=== PATIENT | male | born 1950 | race African-American/Black ===

== ENCOUNTER 2017-07-30 12:19 | Inpatient (IN) | payer OTHER ==
[2017-07-30 12:54] VITALS: BMI 26.3
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
[2017-07-30] MEDS ORDERED: ALBUTEROL SO4 18 GM HFA INHALER IH PRN (15:44)
[2017-07-30] MEDS ORDERED: PATIENT'S OWN MEDICATION (NON-FORMULARY) (Nifedipine [Nifedipine Er] 60 MG) PO SCH (15:45)
[2017-07-30] MEDS ORDERED: MENTHOL/PHENOL 1 EACH UD MM PRN (15:55)
[2017-07-30] MEDS ORDERED: NICOTINE POLACRILEX 2 MG GUM BUC PRN (15:55)
[2017-07-30] MEDS ORDERED: IBUPROFEN 400 MG TABLET (FP) PO PRN (15:55)
[2017-07-30] MEDS ORDERED: guaiFENesin/D-METHORPHAN HB 10 ML UNIT-DOSE CUPS PO PRN (15:55)
[2017-07-30] MEDS ORDERED: MAG HYDROX/AL HYDROX/SIMETH 30 ML UNIT-DOSE CUP PO PRN (15:55)
[2017-07-30] MEDS ORDERED: ACETAMINOPHEN 325 MG TABLET (FP) PO PRN (15:55)
[2017-07-30] MEDS ORDERED: hydrOXYzine PAMOATE 25 MG CAPSULE (FP) PO PRN ×2 (15:55→18:51)
[2017-07-30] MEDS ORDERED: MAGNESIUM HYDROX 2400MG/30ML ORAL SUSPENSION 30 ML CUP PO PRN (15:55)
[2017-07-30] MEDS ORDERED: P-EPHED 60MG/TRIPROLIDI 2.5MG TABLET PO PRN (15:55)
[2017-07-30] MEDS ORDERED: LOPERAMIDE HCL 2 MG CAPSULE PO PRN (15:55)
[2017-07-30] MEDS ORDERED: MAGNESIUM CITRATE 300 ML BOTTLE PO PRN (15:55)
[2017-07-30] MEDS ORDERED: chlordiazePOXIDE HCL 25 MG CAPSULE PO PRN (15:55)
[2017-07-30] MEDS ORDERED: chlordiazePOXIDE HCL 25 MG CAPSULE PO ONE (16:45)
[2017-07-30] MEDS: PANTOPRAZOLE 40 MG TABLET (FP) PO SCH (17:50)
[2017-07-30] MEDS: HYDROCHLOROTHIAZIDE 25 MG TABLET (FP) PO SCH (17:50)
[2017-07-30] MEDS: chlordiazePOXIDE HCL 25 MG CAPSULE PO SCH ×2 (17:51→22:27)
[2017-07-30] MEDS: NICOTINE 14 MG/24 HOURS TOPICAL PATCH TD SCH (17:51)
--- NOTE | 2017-07-30 19:03 | PN ---
[facility] Progress Note Note: received pharmacist reports that patient does not have his own medication, chart reviewed, provider requests continue home med discontinue NF, begins pharmacy supply continue detox
[2017-07-30] MEDS ORDERED: diphenhydrAMINE HCL 50 MG CAPSULE PO PRN (22:00)
[2017-07-30] MEDS: THIAMINE HCL 100 MG TABLET (FP) PO SCH (22:27)
[2017-07-30] MEDS: BUDESONIDE/FORMETEROL FUMARATE 80/4.5 mcg INHALER IH SCH (22:28)
[2017-07-30] MEDS: BACITRACIN 0.9 GM PACKET TP SCH (22:29)
[2017-07-30] MEDS ORDERED: BACITRACIN 0.9 GM PACKET ONE (22:29)
[2017-07-30 23:26] LABS: URINE APPEARANCE SLCLOUDY; URINE BILIRUBIN NEGATIVE (NEGATIVE); URINE BLOOD 2+ (NEGATIVE); URINE COLOR YELLOW; URINE GLUCOSE (UA) NEGATIVE (NEGATIVE); URINE KETONE NEGATIVE (NEGATIVE); URINE LEUK ESTERASE TRACE (NEGATIVE); URINE NITRITE NEGATIVE (NEGATIVE); URINE UROBILINOGEN NEGATIVE mg/dL (0.2-1.0)
[2017-07-30 23:30] LABS: URINE PROTEIN 3+ (NEGATIVE)
[2017-07-30 23:54] LABS: URINE BACTERIA RARE /hpf (NONE SEEN); URINE HYALINE CAST 3 /lpf; URINE MUCUS RARE; URINE RBC 17 /hpf (0-3); URINE WBC 8 /hpf (3-5)
[2017-07-31] MEDS: chlordiazePOXIDE HCL 25 MG CAPSULE PO SCH ×4 (05:12→22:39)
[2017-07-31 10:13] LABS: MCH 26.7 pg (25.7-33.7); MCHC 32.3 g/dl (32.0-35.9); MEAN CELL VOLUME 82.6 fl (80-96); MEAN PLT VOLUME 9.1 fl (7.5-11.1); PLATELET COUNT 211 K/MM3 (134-434); RDW 15.5 % (11.9-15.9); WHITE BLOOD COUNT 6.9 K/mm3 (4.0-10.0)
[2017-07-31 10:27] LABS: ALBUMIN 3.5 g/dl (3.4-5.0); ANION GAP 12 (8-16); CALCIUM 8.5 mg/dL (8.5-10.1); CO2 22 mmol/L (21-32); GLUCOSE,RANDOM 112 mg/dL (74-106)
[2017-07-31 10:33] LABS: ALK PHOS 87 U/L (45-117); BILIRUBIN,TOTAL 0.7 mg/dL (0.2-1.0); CREATININE 1.3 mg/dL (0.7-1.3); SGOT/AST 137 U/L (15-37); SGPT/ALT 116 U/L (12-78); TOT PROT 6.9 g/dl (6.4-8.2)
[2017-07-31] MEDS: BACITRACIN 0.9 GM PACKET TP SCH ×2 (10:36→23:29)
[2017-07-31] MEDS: PRENATAL VITAMINS W/ FOLIC ACID TABLET (FP) PO SCH (10:36)
[2017-07-31] MEDS: HYDROCHLOROTHIAZIDE 25 MG TABLET (FP) PO SCH (10:36)
[2017-07-31] MEDS: PANTOPRAZOLE 40 MG TABLET (FP) PO SCH (10:36)
[2017-07-31] MEDS: NIFEdipine E.R 60 MG TABLET (UD) PO SCH (10:36)
[2017-07-31] MEDS: BUDESONIDE/FORMETEROL FUMARATE 80/4.5 mcg INHALER IH SCH ×2 (10:37→22:39)
[2017-07-31] MEDS: NICOTINE 14 MG/24 HOURS TOPICAL PATCH TD SCH (10:37)
[2017-07-31 12:17] LABS: HIV 1 & 2 AB NEGATIVE; HIV 1 AGp24 NEGATIVE
--- NOTE | 2017-07-31 13:07 | EKG ---
Test Reason : Blood Pressure : / mmHG Vent. Rate : 098 BPM Atrial Rate : 098 BPM P-R Int : 154 ms QRS Dur : 082 ms QT Int : 370 ms P-R-T Axes : 077 019 054 degrees QTc Int : 472 ms NORMAL SINUS RHYTHM MINIMAL VOLTAGE CRITERIA FOR LVH, MAY BE NORMAL VARIANT NO PREVIOUS ECGS AVAILABLE Confirmed by EDGAR GARVIN MD ([id number]) on 07/31/2017 1:07:02 PM Referred By: Confirmed By:EDGAR GARVIN MD
[2017-07-31] MEDS ORDERED: FERROUS SO4 325 MG TABLET (FP) PO SCH (16:15)
--- NOTE | 2017-07-31 16:15 | PN ---
[facility] CIWA - CIWA Score Nausea/Vomitin Muscle Tremors: None Anxiety: 4-Mod. Anxious/Guarded Agitation: 1-Slight > Activity Paroxysmal Sweats: 3 Orientation: 0-Oriented Tacttile Disturbances: 0-None Auditory Disturbances: 2-Mild Harshness/Frighten Visual Disturbances: 3-Moderate Sensitivity Headache: 0-None Present CIWA-Ar Total Score: 15 S Progress Note (SOAP) Subjective: Diarrhea, Body Aches, Fatigue. Objective: PT. A & O X 3, OBSERVED AMBULATING ON UNIT. NO ACUTE DISTRESS. PT. DENIES CHEST PAIN. 07/31/17 16:10 Vital Signs Temperature 98.6 F 07/31/17 15:19 Pulse Rate 105 H 07/31/17 15:19 Respiratory Rate 20 07/31/17 15:19 Blood Pressure 165/78 07/31/17 15:19 O2 Sat by Pulse Oximetry (%) Laboratory Tests 07/30/17 07/31/17 07/31/17 22:25 08:00 08:00 WBC 6.9 D RBC 4.08 Hgb 10.9 L Hct 33.7 L MCV 82.6 MCH 26.7 MCHC 32.3 RDW 15.5 Plt Count 211 MPV 9.1 Sodium Potassium Chloride Carbon Dioxide Anion Gap BUN Creatinine Creat Clearance w eGFR Random Glucose Calcium Total Bilirubin AST ALT Alkaline Phosphatase Total Protein Albumin Urine Color Yellow Urine Appearance Slcloudy Urine pH 5.0 Ur Specific [place] 1.020 Urine Protein 3+ H Urine Glucose (UA) Negative Urine Ketones Negative Urine Blood 2+ H Urine Nitrite Negative Urine Bilirubin Negative Urine Urobilinogen Negative Urine RBC 17 Urine WBC 8 Ur Epithelial Cells Rare Urine Bacteria Rare Hyaline Casts 3 Urine Mucus Rare RPR Titer HIV 1&2 Antibody Screen Negative HIV P24 Antigen Negative 07/31/17 07/31/17 08:00 08:00 WBC RBC Hgb Hct MCV MCH MCHC RDW Plt Count MPV Sodium 140 Potassium 3.5 Chloride 106 Carbon Dioxide 22 Anion Gap 12 BUN 31 H D Creatinine 1.3 D Creat Clearance w eGFR 54.73 Random Glucose 112 H D Calcium 8.5 Total Bilirubin 0.7 D AST 137 H D ALT 116 H D Alkaline Phosphatase 87 Total Protein 6.9 Albumin 3.5 Urine Color Urine Appearance Urine pH Ur Specific [place] Urine Protein Urine Glucose (UA) Urine Ketones Urine Blood Urine Nitrite Urine Bilirubin Urine Urobilinogen Urine RBC Urine WBC Ur Epithelial Cells Urine Bacteria Hyaline Casts Urine Mucus RPR Titer Nonreactive HIV 1&2 Antibody Screen HIV P24 Antigen LABS NOTED. Assessment: 07/31/17 16:12 WITHDRAWAL SYMPTOMS. ANEMIA. 07/31/17 16:17 Plan: CONTINUE DETOX. REPEAT UA AND CMP (08/02/2017) FOR ADMISSION ABNORMALITIES. FEOSOL, 325 MG PO BIDWM. D/C MAGNESIUM-CONTAINING MEDS. INCREASE DAILY PO FLUID INTAKE.
[2017-07-31] MEDS: FERROUS SO4 325 MG TABLET (FP) PO SCH (16:57)
[2017-07-31] MEDS: VITAMINS A AND D TOPICAL OINTMENT 60 GM TUBE TP SCH ×2 (18:16→23:32)
[2017-07-31] MEDS: THIAMINE HCL 100 MG TABLET (FP) PO SCH (22:38)
[2017-08-01] MEDS: chlordiazePOXIDE HCL 25 MG CAPSULE PO SCH ×2 (05:31→10:29)
[2017-08-01] MEDS: VITAMINS A AND D TOPICAL OINTMENT 60 GM TUBE TP SCH ×3 (05:32→17:05)
[2017-08-01] MEDS: FERROUS SO4 325 MG TABLET (FP) PO SCH ×2 (07:31→17:05)
[2017-08-01] MEDS: PANTOPRAZOLE 40 MG TABLET (FP) PO SCH (10:29)
[2017-08-01] MEDS: BACITRACIN 0.9 GM PACKET TP SCH ×2 (10:29→22:18)
[2017-08-01] MEDS: BUDESONIDE/FORMETEROL FUMARATE 80/4.5 mcg INHALER IH SCH ×2 (10:29→22:18)
[2017-08-01] MEDS: HYDROCHLOROTHIAZIDE 25 MG TABLET (FP) PO SCH (10:30)
[2017-08-01] MEDS: NIFEdipine E.R 60 MG TABLET (UD) PO SCH (10:30)
[2017-08-01] MEDS: PRENATAL VITAMINS W/ FOLIC ACID TABLET (FP) PO SCH (10:30)
[2017-08-01] MEDS: NICOTINE 14 MG/24 HOURS TOPICAL PATCH TD SCH (10:30)
[2017-08-01 13:24] LABS: URINE APPEARANCE SLCLOUDY; URINE BILIRUBIN NEGATIVE (NEGATIVE); URINE BLOOD NEGATIVE (NEGATIVE); URINE COLOR YELLOW; URINE GLUCOSE (UA) NEGATIVE (NEGATIVE); URINE KETONE NEGATIVE (NEGATIVE); URINE LEUK ESTERASE NEGATIVE (NEGATIVE); URINE NITRITE NEGATIVE (NEGATIVE); URINE PROTEIN 1+ (NEGATIVE); URINE UROBILINOGEN NEGATIVE mg/dL (0.2-1.0)
[2017-08-01 13:25] LABS: URINE MUCUS RARE; URINE RBC 2 /hpf (0-3); URINE WBC 1 /hpf (3-5)
--- NOTE | 2017-08-01 16:04 | PN ---
[facility] CIWA - CIWA Score Nausea/Vomitin Muscle Tremors: 3 Anxiety: 3 Agitation: 3 Paroxysmal Sweats: 3 Orientation: 0-Oriented Tacttile Disturbances: 1-Very Mild Itch/Numbness Auditory Disturbances: 0-None Visual Disturbances: 0-None Headache: 1-Very Mild CIWA-Ar Total Score: 17 [facility] Progress Note (SOAP) Subjective: Anxious, sweating, nausea, tremor, chills Objective: 08/01/17 16:00 Last Vital Signs Temp Pulse Resp BP Pulse Ox 96.8 F L 94 H 18 149/57 08/01/17 14:52 08/01/17 14:52 08/01/17 14:52 08/01/17 14:52 Laboratory Tests 07/30/17 07/31/17 07/31/17 22:25 08:00 08:00 WBC 6.9 D RBC 4.08 Hgb 10.9 L Hct 33.7 L MCV 82.6 MCH 26.7 MCHC 32.3 RDW 15.5 Plt Count 211 MPV 9.1 Sodium Potassium Chloride Carbon Dioxide Anion Gap BUN Creatinine Creat Clearance w eGFR Random Glucose Calcium Total Bilirubin AST ALT Alkaline Phosphatase Total Protein Albumin Urine Color Yellow Urine Appearance Slcloudy Urine pH 5.0 Ur Specific [place] 1.020 Urine Protein 3+ H Urine Glucose (UA) Negative Urine Ketones Negative Urine Blood 2+ H Urine Nitrite Negative Urine Bilirubin Negative Urine Urobilinogen Negative Urine RBC 17 Urine WBC 8 Ur Epithelial Cells Rare Urine Bacteria Rare Hyaline Casts 3 Urine Mucus Rare RPR Titer HIV 1&2 Antibody Screen Negative HIV P24 Antigen Negative 07/31/17 07/31/17 08/01/17 08:00 08:00 Unknown WBC RBC Hgb Hct MCV MCH MCHC RDW Plt Count MPV Sodium 140 Potassium 3.5 Chloride 106 Carbon Dioxide 22 Anion Gap 12 BUN 31 H D Creatinine 1.3 D Creat Clearance w eGFR 54.73 Random Glucose 112 H D Calcium 8.5 Total Bilirubin 0.7 D AST 137 H D ALT 116 H D Alkaline Phosphatase 87 Total Protein 6.9 Albumin 3.5 Urine Color Yellow Urine Appearance Slcloudy Urine pH 5.0 Ur Specific [place] Urine Protein 1+ H D Urine Glucose (UA) Negative Urine Ketones Negative Urine Blood Negative Urine Nitrite Negative Urine Bilirubin Negative Urine Urobilinogen Negative Urine RBC 2 Urine WBC 1 Ur Epithelial Cells Rare Urine Bacteria Hyaline Casts Urine Mucus Rare RPR Titer Nonreactive HIV 1&2 Antibody Screen HIV P24 Antigen Labs noted: bun 31, serum creatinine 1.3, GFR 54.73; UA: abnormal Assessment: 08/01/17 16:04 Withdrawal symptoms Noted with OLEG vs prerenal azotemia; noted with abnormal UA Plan: Continue detox OLEG vs prerenal azotemia: encouraged to drink lots of water, repeat BMP Abnormal UA: repeat UA
[2017-08-01] MEDS: chlordiazePOXIDE 5 MG CAPSULE PO SCH ×2 (17:05→22:18)
[2017-08-01] MEDS: THIAMINE HCL 100 MG TABLET (FP) PO SCH (22:18)
[2017-08-01] MEDS: diphenhydrAMINE HCL 50 MG CAPSULE PO PRN (22:19)
[2017-08-02] MEDS: VITAMINS A AND D TOPICAL OINTMENT 60 GM TUBE TP SCH ×5 (00:38→23:35)
[2017-08-02] MEDS: chlordiazePOXIDE 5 MG CAPSULE PO SCH ×2 (05:37→10:24)
[2017-08-02] MEDS: FERROUS SO4 325 MG TABLET (FP) PO SCH ×2 (07:35→17:56)
[2017-08-02] MEDS: NIFEdipine E.R 60 MG TABLET (UD) PO SCH (10:24)
[2017-08-02] MEDS: BUDESONIDE/FORMETEROL FUMARATE 80/4.5 mcg INHALER IH SCH ×2 (10:24→23:35)
[2017-08-02] MEDS: BACITRACIN 0.9 GM PACKET TP SCH ×2 (10:24→22:30)
[2017-08-02] MEDS: PRENATAL VITAMINS W/ FOLIC ACID TABLET (FP) PO SCH (10:24)
[2017-08-02] MEDS: PANTOPRAZOLE 40 MG TABLET (FP) PO SCH (10:24)
[2017-08-02] MEDS: HYDROCHLOROTHIAZIDE 25 MG TABLET (FP) PO SCH (10:24)
[2017-08-02] MEDS: NICOTINE 14 MG/24 HOURS TOPICAL PATCH TD SCH (10:24)
[2017-08-02 10:36] LABS: ALBUMIN 2.9 g/dl (3.4-5.0); ALK PHOS 78 U/L (45-117); ANION GAP 7 (8-16); BILIRUBIN,TOTAL 0.4 mg/dL (0.2-1.0); CALCIUM 9.2 mg/dL (8.5-10.1); CO2 26 mmol/L (21-32); CREATININE 1.6 mg/dL (0.7-1.3); GLUCOSE,RANDOM 148 mg/dL (74-106); SGOT/AST 82 U/L (15-37); SGPT/ALT 96 U/L (12-78); TOT PROT 6.1 g/dl (6.4-8.2)
--- NOTE | 2017-08-02 11:09 | PN ---
[facility] Progress Note (SOAP) Subjective: nausea, sweats, interrupted sleep, anxeity, tremors Objective: 08/02/17 11:07 Vital Signs - 8 hr 08/02/17 08/02/17 08/02/17 03:30 06:22 09:03 Temperature 98.1 F 96.4 F L Pulse Rate 86 87 Respiratory 20 18 18 Rate Blood Pressure 127/73 145/60 Laboratory Tests 07/30/17 07/31/17 07/31/17 22:25 08:00 08:00 WBC 6.9 D RBC 4.08 Hgb 10.9 L Hct 33.7 L MCV 82.6 MCH 26.7 MCHC 32.3 RDW 15.5 Plt Count 211 MPV 9.1 Sodium Potassium Chloride Carbon Dioxide Anion Gap BUN Creatinine Creat Clearance w eGFR Random Glucose Calcium Total Bilirubin AST ALT Alkaline Phosphatase Total Protein Albumin Urine Color Yellow Urine Appearance Slcloudy Urine pH 5.0 Ur Specific [place] 1.020 Urine Protein 3+ H Urine Glucose (UA) Negative Urine Ketones Negative Urine Blood 2+ H Urine Nitrite Negative Urine Bilirubin Negative Urine Urobilinogen Negative Urine RBC 17 Urine WBC 8 Ur Epithelial Cells Rare Urine Bacteria Rare Hyaline Casts 3 Urine Mucus Rare RPR Titer HIV 1&2 Antibody Screen Negative HIV P24 Antigen Negative 07/31/17 07/31/17 08/01/17 08:00 08:00 Unknown WBC RBC Hgb Hct MCV MCH MCHC RDW Plt Count MPV Sodium 140 Potassium 3.5 Chloride 106 Carbon Dioxide 22 Anion Gap 12 BUN 31 H D Creatinine 1.3 D Creat Clearance w eGFR 54.73 Random Glucose 112 H D Calcium 8.5 Total Bilirubin 0.7 D AST 137 H D ALT 116 H D Alkaline Phosphatase 87 Total Protein 6.9 Albumin 3.5 Urine Color Yellow Urine Appearance Slcloudy Urine pH 5.0 Ur Specific [place] 1.020 Urine Protein 1+ H D Urine Glucose (UA) Negative Urine Ketones Negative Urine Blood Negative Urine Nitrite Negative Urine Bilirubin Negative Urine Urobilinogen Negative Urine RBC 2 Urine WBC 1 Ur Epithelial Cells Rare Urine Bacteria Hyaline Casts Urine Mucus Rare RPR Titer Nonreactive HIV 1&2 Antibody Screen HIV P24 Antigen 08/02/17 07:30 WBC RBC Hgb Hct MCV MCH MCHC RDW Plt Count MPV Sodium 141 Potassium 4.1 Chloride 108 H Carbon Dioxide 26 Anion Gap 7 L BUN 34 H Creatinine 1.6 H D Creat Clearance w eGFR 43.07 Random Glucose 148 H D Calcium 9.2 Total Bilirubin 0.4 D AST 82 H D ALT 96 H Alkaline Phosphatase 78 Total Protein 6.1 L Albumin 2.9 L Urine Color Urine Appearance Urine pH Ur Specific [place] Urine Protein Urine Glucose (UA) Urine Ketones Urine Blood Urine Nitrite Urine Bilirubin Urine Urobilinogen Urine RBC Urine WBC Ur Epithelial Cells Urine Bacteria Hyaline Casts Urine Mucus RPR Titer HIV 1&2 Antibody Screen HIV P24 Antigen elevated lfts trending down, anemia, dehydration noted, OLEG Assessment: 08/02/17 11:09 withdrawawl sx, hepatitis, dehydration Plan: cont detox, fluids, encoruageg ambulation, symptomatic relief of withdrawla sx as need prn medications ordered, start iron supplements with colace
[2017-08-02 13:42] LABS: URINE APPEARANCE CLEAR; URINE BILIRUBIN NEGATIVE (NEGATIVE); URINE BLOOD 1+ (NEGATIVE); URINE COLOR YELLOW; URINE GLUCOSE (UA) NEGATIVE (NEGATIVE); URINE KETONE NEGATIVE (NEGATIVE); URINE LEUK ESTERASE NEGATIVE (NEGATIVE); URINE NITRITE NEGATIVE (NEGATIVE); URINE PROTEIN NEGATIVE (NEGATIVE); URINE UROBILINOGEN NEGATIVE mg/dL (0.2-1.0)
[2017-08-02 13:53] LABS: URINE BACTERIA RARE /hpf (NONE SEEN); URINE MUCUS RARE; URINE RBC 1 /hpf (0-3); URINE WBC 1 /hpf (3-5)
[2017-08-02] MEDS: chlordiazePOXIDE HCL 10 MG CAPSULE PO SCH ×2 (17:56→22:31)
[2017-08-02] MEDS ORDERED: DOCUSATE SODIUM 100 MG CAPSULE (FP) PO SCH (22:00)
[2017-08-02] MEDS: THIAMINE HCL 100 MG TABLET (FP) PO SCH (22:30)
[2017-08-02] MEDS: diphenhydrAMINE HCL 50 MG CAPSULE PO PRN (22:31)
[2017-08-03] MEDS: chlordiazePOXIDE HCL 10 MG CAPSULE PO SCH (05:32)
[2017-08-03] MEDS: FERROUS SO4 325 MG TABLET (FP) PO SCH (07:42)
[2017-08-03] MEDS: VITAMINS A AND D TOPICAL OINTMENT 60 GM TUBE TP SCH (07:42)
[2017-08-03 09:24] VITALS: BP 136/69; PULSE 89; TEMP 98.1
--- NOTE | 2017-08-03 15:01 | DS ---
[facility] Detox Discharge Summary Admission Date: 07/30/17 Discharge Date: 08/03/17 - History Present History: Alcohol Dependence Additional Comments: PATIENT GOING TO [facility]. PATIENT WAS DISCHARGED FROM DETOX UNIT IN STABLE MEDICAL CONDITION. Pertinent Past History: GERD, Asthma, Nicotine dependence, HTN, History of Anemia. - Physical Exam Results Vital Signs: Vital Signs Temperature 98.1 F 08/03/17 09:24 Pulse Rate 89 08/03/17 09:24 Respiratory Rate 18 08/03/17 09:24 Blood Pressure 136/69 08/03/17 09:24 O2 Sat by Pulse Oximetry (%) Pertinent Admission Physical Exam Findings: WITHDRAWAL SYMPTOMS. Laboratory Tests 07/30/17 07/31/17 07/31/17 22:25 08:00 08:00 WBC 6.9 D RBC 4.08 Hgb 10.9 L Hct 33.7 L MCV 82.6 MCH 26.7 MCHC 32.3 RDW 15.5 Plt Count 211 MPV 9.1 Sodium Potassium Chloride Carbon Dioxide Anion Gap BUN Creatinine Creat Clearance w eGFR Random Glucose Calcium Total Bilirubin AST ALT Alkaline Phosphatase Total Protein Albumin Urine Color Yellow Urine Appearance Slcloudy Urine pH 5.0 Ur Specific [place] 1.020 Urine Protein 3+ H Urine Glucose (UA) Negative Urine Ketones Negative Urine Blood 2+ H Urine Nitrite Negative Urine Bilirubin Negative Urine Urobilinogen Negative Urine RBC 17 Urine WBC 8 Ur Epithelial Cells Rare Urine Bacteria Rare Hyaline Casts 3 Urine Mucus Rare RPR Titer HIV 1&2 Antibody Screen Negative HIV P24 Antigen Negative 07/31/17 07/31/17 08/01/17 08:00 08:00 Unknown WBC RBC Hgb Hct MCV MCH MCHC RDW Plt Count MPV Sodium 140 Potassium 3.5 Chloride 106 Carbon Dioxide 22 Anion Gap 12 BUN 31 H D Creatinine 1.3 D Creat Clearance w eGFR 54.73 Random Glucose 112 H D Calcium 8.5 Total Bilirubin 0.7 D AST 137 H D ALT 116 H D Alkaline Phosphatase 87 Total Protein 6.9 Albumin 3.5 Urine Color Yellow Urine Appearance Slcloudy Urine pH 5.0 Ur Specific [place] 1.020 Urine Protein 1+ H D Urine Glucose (UA) Negative Urine Ketones Negative Urine Blood Negative Urine Nitrite Negative Urine Bilirubin Negative Urine Urobilinogen Negative Urine RBC 2 Urine WBC 1 Ur Epithelial Cells Rare Urine Bacteria Hyaline Casts Urine Mucus Rare RPR Titer Nonreactive HIV 1&2 Antibody Screen HIV P24 Antigen 08/02/17 08/02/17 07:30 12:15 WBC RBC Hgb Hct MCV MCH MCHC RDW Plt Count MPV Sodium 141 Potassium 4.1 Chloride 108 H Carbon Dioxide 26 Anion Gap 7 L BUN 34 H Creatinine 1.6 H D Creat Clearance w eGFR 43.07 Random Glucose 148 H D Calcium 9.2 Total Bilirubin 0.4 D AST 82 H D ALT 96 H Alkaline Phosphatase 78 Total Protein 6.1 L Albumin 2.9 L Urine Color Yellow Urine Appearance Clear Urine pH 5.0 Ur Specific [place] 1.015 Urine Protein Negative Urine Glucose (UA) Negative Urine Ketones Negative Urine Blood 1+ H Urine Nitrite Negative Urine Bilirubin Negative Urine Urobilinogen Negative Urine RBC 1 Urine WBC 1 Ur Epithelial Cells Rare Urine Bacteria Rare Hyaline Casts Urine Mucus Rare RPR Titer HIV 1&2 Antibody Screen HIV P24 Antigen LABS NOTED. - Treatment Hospital Course: Detox Protocol Followed, Detoxed Safely, Responded well, Discharged Condition Good, Rehab Referral Accepted - Medication Discharge Medications: Ambulatory Orders Albuterol Sulfate Inhaler - [Ventolin HFA Inhaler -] 2 inh IH Q4H PRN #1 cartridge 01/07/16 Hydrochlorothiazide [Hctz -] 25 mg PO DAILY #30 tablet 01/07/16 Nifedipine [Nifedipine ER] 60 mg PO DAILY #30 tab.er.[id number] 01/07/16 Pantoprazole Sodium [Protonix -] 40 mg PO DAILY #30 tablet.ec 01/07/16 Budesonide/Formeterol Fumarate [SYMBICORT 80/4.5mcg -] 1 puff IH BID 07/30/17 Ibuprofen 800 mg PO TID 07/30/17 - Diagnosis (1) Weight decreased Status: Active (2) Alcohol dependence with withdrawal, uncomplicated Status: Acute (3) Nicotine dependence Status: Chronic Qualifiers: Nicotine product type: cigarettes Substance use status: in withdrawal Qualified Code(s): F17.213 - Nicotine dependence, cigarettes, with withdrawal; F17.213 - Nicotine dependence, cigarettes, with withdrawal (4) Anemia Status: Chronic Qualifiers: Anemia type: iron deficiency Iron deficiency anemia type: unspecified iron deficiency Qualified Code(s): D50.9 - Iron deficiency anemia, unspecified; D50.9 - Iron deficiency anemia, unspecified (5) Asthma Status: Chronic (6) Essential hypertension Status: Chronic (7) Gastroesophageal reflux disease Status: Chronic Qualifiers: Esophagitis presence: esophagitis presence not specified Qualified Code(s): K21.9 - Gastro-esophageal reflux disease without esophagitis; K21.9 - Gastro-esophageal reflux disease without esophagitis; K21.9 - Gastro-esophageal reflux disease without esophagitis - AMA Did Patient Leave Against Medical Advice: No
== END 2017-08-03 09:13 | disposition home or self-care (01) | DRG 897 ==
LOC: YASAS 12:19 → Y3N 16:06
PROVIDERS: ADMIT Internal Medicine; ATTEND Internal Medicine
PROC: HZ2ZZZZ Detoxification Services for Substance Abuse Treatment (ICD-10-PCS; principal; 2017-07-30)
DX: F10.230 Alcohol dependence with withdrawal, uncomplicated (principal); F17.213 Nicotine dependence, cigarettes, with withdrawal; I10 Essential (primary) hypertension; D50.9 Iron deficiency anemia, unspecified; J45.909 Unspecified asthma, uncomplicated; K21.9 Gastro-esophageal reflux disease without esophagitis; R63.4 Abnormal weight loss; Z68.26 Body mass index [BMI] 26.0-26.9, adult
CPT/HCPCS: 36415; 80053; 81003; 81015; 85027; 86593; 87389; 93005; 93010

== ENCOUNTER 2017-10-26 12:21 | Inpatient (IN) | payer OTHER ==
[2017-10-26 13:01] VITALS: BMI 23.1
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
[2017-10-26] MEDS ORDERED: ALBUTEROL SO4 18 GM HFA INHALER IH PRN (16:08)
[2017-10-26] MEDS ORDERED: MAGNESIUM CITRATE 300 ML BOTTLE PO PRN (16:09)
[2017-10-26] MEDS ORDERED: MENTHOL/PHENOL 1 EACH UD MM PRN (16:09)
[2017-10-26] MEDS ORDERED: P-EPHED 60MG/TRIPROLIDI 2.5MG TABLET PO PRN (16:09)
[2017-10-26] MEDS ORDERED: MAG HYDROX/AL HYDROX/SIMETH 30 ML UNIT-DOSE CUP PO PRN (16:09)
[2017-10-26] MEDS ORDERED: MAGNESIUM HYDROX 2400MG/30ML ORAL SUSPENSION 30 ML CUP PO PRN (16:09)
[2017-10-26] MEDS ORDERED: LOPERAMIDE HCL 2 MG CAPSULE PO PRN (16:09)
[2017-10-26] MEDS ORDERED: chlordiazePOXIDE HCL 25 MG CAPSULE PO PRN (17:16)
[2017-10-26] MEDS ORDERED: NICOTINE POLACRILEX 2 MG GUM BUC PRN (17:18)
[2017-10-26] MEDS ORDERED: chlordiazePOXIDE HCL 25 MG CAPSULE PO ONE (18:00)
[2017-10-26] MEDS: HYDROCHLOROTHIAZIDE 25 MG TABLET (FP) PO SCH (18:11)
[2017-10-26] MEDS: chlordiazePOXIDE HCL 25 MG CAPSULE PO SCH ×2 (18:13→22:35)
[2017-10-26] MEDS: NICOTINE 14 MG/24 HOURS TOPICAL PATCH TD SCH (18:14)
[2017-10-26 21:28] LABS: URINE APPEARANCE SLCLOUDY; URINE BILIRUBIN NEGATIVE (NEGATIVE); URINE BLOOD NEGATIVE (NEGATIVE); URINE COLOR DKYELLOW; URINE GLUCOSE (UA) NEGATIVE (NEGATIVE); URINE KETONE NEGATIVE (NEGATIVE); URINE LEUK ESTERASE NEGATIVE (NEGATIVE); URINE NITRITE NEGATIVE (NEGATIVE); URINE UROBILINOGEN NEGATIVE mg/dL (0.2-1.0)
[2017-10-26 21:29] LABS: URINE PROTEIN 2+ (NEGATIVE)
[2017-10-26 21:33] LABS: URINE HYALINE CAST 21 /lpf; URINE MUCUS RARE; URINE RBC 8 /hpf (0-3); URINE WBC 1 /hpf (3-5)
[2017-10-26] MEDS: THIAMINE HCL 100 MG TABLET (FP) PO SCH (22:34)
[2017-10-26] MEDS: BUDESONIDE/FORMETEROL FUMARATE 80/4.5 mcg INHALER IH SCH (22:35)
[2017-10-26 22:58] LABS: URINE LEUK ESTERASE Negative (NEGATIVE)
[2017-10-27] MEDS: chlordiazePOXIDE HCL 25 MG CAPSULE PO SCH ×4 (05:28→23:04)
--- NOTE | 2017-10-27 09:07 | PN ---
S CIWA - CIWA Score Nausea/Vomitin Muscle Tremors: 3 Anxiety: 3 Agitation: 3 Paroxysmal Sweats: 3 Orientation: 0-Oriented Tacttile Disturbances: 1-Very Mild Itch/Numbness Auditory Disturbances: 0-None Visual Disturbances: 0-None Headache: 1-Very Mild CIWA-Ar Total Score: 17 BHS Progress Note (SOAP) Subjective: nausea, sweats, interruped sleep, anxiety, tremors Objective: 10/27/17 09:06 Vital Signs - 24 hr 10/26/17 10/26/17 10/26/17 12:58 18:22 22:41 Temperature 96.9 F L 97.9 F 99.0 F Pulse Rate 83 90 85 Respiratory 20 18 18 Rate Blood Pressure 174/97 152/92 132/77 10/27/17 10/27/17 10/27/17 00:30 03:30 05:41 Temperature 98.1 F Pulse Rate 96 H Respiratory 18 18 18 Rate Blood Pressure 173/96 10/27/17 07:16 Temperature Pulse Rate 91 H Respiratory 18 Rate Blood Pressure 149/79 Laboratory Tests 10/26/17 21:00 Urine Color Dkyellow Urine Appearance Slcloudy Urine pH 5.0 Ur Specific [place] 1.021 Urine Protein 2+ H Urine Glucose (UA) Negative Urine Ketones Negative Urine Blood Negative Urine Nitrite Negative Urine Bilirubin Negative Urine Urobilinogen Negative Ur Leukocyte Esterase Negative Urine WBC (Auto) 1 Urine RBC (Auto) 8 Ur Epithelial Cells Rare Hyaline Casts 21 Urine Mucus Rare labs pending Assessment: 10/27/17 09:06 withdrawal sx Plan: cont detox, lfuids, prn libirum 50mg dose at 1PM ordered
[2017-10-27 10:22] LABS: ALBUMIN 3.1 g/dl (3.4-5.0); ALK PHOS 96 U/L (45-117); ANION GAP 8 (8-16); BILIRUBIN,TOTAL 0.3 mg/dL (0.2-1.0); CO2 27 mmol/L (21-32); CREATININE 1.2 mg/dL (0.7-1.3); GLUCOSE,RANDOM 139 mg/dL (74-106); SGOT/AST 60 U/L (15-37); SGPT/ALT 75 U/L (12-78); TOT PROT 6.8 g/dl (6.4-8.2)
[2017-10-27] MEDS: NIFEdipine E.R 60 MG TABLET (UD) PO SCH (10:43)
[2017-10-27] MEDS: PRENATAL VITAMINS W/ FOLIC ACID TABLET (FP) PO SCH (10:43)
[2017-10-27] MEDS: PANTOPRAZOLE 40 MG TABLET (FP) PO SCH (10:43)
[2017-10-27] MEDS: HYDROCHLOROTHIAZIDE 25 MG TABLET (FP) PO SCH (10:43)
[2017-10-27] MEDS: BUDESONIDE/FORMETEROL FUMARATE 80/4.5 mcg INHALER IH SCH ×2 (10:44→23:05)
[2017-10-27] MEDS: NICOTINE 14 MG/24 HOURS TOPICAL PATCH TD SCH (10:44)
[2017-10-27 10:46] LABS: MCH 27.8 pg (25.7-33.7); MCHC 31.2 g/dl (32.0-35.9); MEAN CELL VOLUME 88.8 fl (80-96); MEAN PLT VOLUME 9.6 fl (7.5-11.1); PLATELET COUNT 200 K/MM3 (134-434); RDW 17.7 % (11.9-15.9); WHITE BLOOD COUNT 5.9 K/mm3 (4.0-10.0)
[2017-10-27] MEDS ORDERED: chlordiazePOXIDE HCL 25 MG CAPSULE PO ONE (13:00)
--- NOTE | 2017-10-27 13:02 | EKG ---
Test Reason : Blood Pressure : / mmHG Vent. Rate : 089 BPM Atrial Rate : 089 BPM P-R Int : 154 ms QRS Dur : 062 ms QT Int : 372 ms P-R-T Axes : 070 020 037 degrees QTc Int : 452 ms NORMAL SINUS RHYTHM NONSPECIFIC ST AND T WAVE ABNORMALITY ABNORMAL ECG WHEN COMPARED WITH ECG OF 30-JUL-2017 18:09, NO SIGNIFICANT CHANGE WAS FOUND Confirmed by YAMILETH GIBBS MD ([id number]) on 10/27/2017 1:02:29 PM Referred By: Confirmed By:YAMILETH GIBBS MD
[2017-10-27] MEDS: guaiFENesin/D-METHORPHAN HB 10 ML UNIT-DOSE CUPS PO PRN (17:51)
[2017-10-27] MEDS: THIAMINE HCL 100 MG TABLET (FP) PO SCH (23:05)
[2017-10-28] MEDS: chlordiazePOXIDE HCL 25 MG CAPSULE PO SCH ×2 (06:04→10:24)
[2017-10-28] MEDS: guaiFENesin/D-METHORPHAN HB 10 ML UNIT-DOSE CUPS PO PRN (06:06)
[2017-10-28] MEDS: PRENATAL VITAMINS W/ FOLIC ACID TABLET (FP) PO SCH (10:24)
[2017-10-28] MEDS: PANTOPRAZOLE 40 MG TABLET (FP) PO SCH (10:24)
[2017-10-28] MEDS: HYDROCHLOROTHIAZIDE 25 MG TABLET (FP) PO SCH (10:24)
[2017-10-28] MEDS: NIFEdipine E.R 60 MG TABLET (UD) PO SCH (10:24)
[2017-10-28] MEDS: NICOTINE 14 MG/24 HOURS TOPICAL PATCH TD SCH (10:25)
[2017-10-28] MEDS: BUDESONIDE/FORMETEROL FUMARATE 80/4.5 mcg INHALER IH SCH ×2 (10:25→22:55)
[2017-10-28] MEDS: IBUPROFEN 400 MG TABLET (FP) PO PRN ×2 (10:27→23:13)
[2017-10-28] MEDS: VITAMINS A AND D TOPICAL OINTMENT 60 GM TUBE TP SCH ×2 (11:46→23:11)
--- NOTE | 2017-10-28 14:09 | PN ---
[facility] CIWA - CIWA Score Nausea/Vomitin-Mild Nausea/No Vomiting Muscle Tremors: 3 Anxiety: 3 Agitation: 3 Paroxysmal Sweats: 2 Orientation: 0-Oriented Tacttile Disturbances: 1-Very Mild Itch/Numbness Auditory Disturbances: 0-None Visual Disturbances: 0-None Headache: 2-Mild CIWA-Ar Total Score: 15 S Progress Note (SOAP) Subjective: Sweating, back pain, nausea, anxious Objective: 10/28/17 14:06 Last Vital Signs Temp Pulse Resp BP Pulse Ox 97.5 F L 84 16 128/66 10/28/17 13:47 10/28/17 13:47 10/28/17 13:47 10/28/17 13:47 Laboratory Tests 10/26/17 10/27/17 10/27/17 21:00 06:00 06:00 WBC 5.9 RBC 4.02 Hgb 11.2 L Hct 35.7 MCV 88.8 MCH 27.8 MCHC 31.2 L RDW 17.7 H D Plt Count 200 MPV 9.6 Sodium 140 Potassium 3.7 Chloride 105 Carbon Dioxide 27 Anion Gap 8 BUN 24 H D Creatinine 1.2 D Creat Clearance w eGFR > 60 Random Glucose 139 H Calcium 9.0 Total Bilirubin 0.3 D AST 60 H D ALT 75 D Alkaline Phosphatase 96 D Total Protein 6.8 Albumin 3.1 L Urine Color Dkyellow Urine Appearance Slcloudy Urine pH 5.0 Ur Specific [place] 1.021 Urine Protein 2+ H Urine Glucose (UA) Negative Urine Ketones Negative Urine Blood Negative Urine Nitrite Negative Urine Bilirubin Negative Urine Urobilinogen Negative Ur Leukocyte Esterase Negative Urine WBC (Auto) 1 Urine RBC (Auto) 8 Ur Epithelial Cells Rare Hyaline Casts 21 Urine Mucus Rare RPR Titer 10/27/17 06:00 WBC RBC Hgb Hct MCV MCH MCHC RDW Plt Count MPV Sodium Potassium Chloride Carbon Dioxide Anion Gap BUN Creatinine Creat Clearance w eGFR Random Glucose Calcium Total Bilirubin AST ALT Alkaline Phosphatase Total Protein Albumin Urine Color Urine Appearance Urine pH Ur Specific [place] Urine Protein Urine Glucose (UA) Urine Ketones Urine Blood Urine Nitrite Urine Bilirubin Urine Urobilinogen Ur Leukocyte Esterase Urine WBC (Auto) Urine RBC (Auto) Ur Epithelial Cells Hyaline Casts Urine Mucus RPR Titer Nonreactive Labs noted: pre renal azotemia, abnormal UA Assessment: 10/28/17 14:07 Withdrawal symptoms Noted with pre renal azotemia and abnormal UA Plan: Continue detox Pre renal azotemia: encouraged to drink lots of water Abnormal UA: encouraged to drink lots of water for hydration, repeat UA
[2017-10-28] MEDS: chlordiazePOXIDE 5 MG CAPSULE PO SCH ×2 (17:33→23:10)
[2017-10-28] MEDS: ACETAMINOPHEN 325 MG TABLET (FP) PO PRN (17:34)
[2017-10-28] MEDS: THIAMINE HCL 100 MG TABLET (FP) PO SCH (23:11)
[2017-10-29] MEDS: chlordiazePOXIDE 5 MG CAPSULE PO SCH ×2 (06:15→10:32)
[2017-10-29] MEDS: IBUPROFEN 400 MG TABLET (FP) PO PRN (09:01)
[2017-10-29] MEDS: NIFEdipine E.R 60 MG TABLET (UD) PO SCH (10:31)
[2017-10-29] MEDS: VITAMINS A AND D TOPICAL OINTMENT 60 GM TUBE TP SCH ×2 (10:32→22:55)
[2017-10-29] MEDS: PANTOPRAZOLE 40 MG TABLET (FP) PO SCH (10:32)
[2017-10-29] MEDS: PRENATAL VITAMINS W/ FOLIC ACID TABLET (FP) PO SCH (10:32)
[2017-10-29] MEDS: NICOTINE 14 MG/24 HOURS TOPICAL PATCH TD SCH (10:33)
[2017-10-29] MEDS: HYDROCHLOROTHIAZIDE 25 MG TABLET (FP) PO SCH (10:33)
[2017-10-29] MEDS: BUDESONIDE/FORMETEROL FUMARATE 80/4.5 mcg INHALER IH SCH ×2 (10:33→22:57)
[2017-10-29] MEDS: ACETAMINOPHEN 325 MG TABLET (FP) PO PRN ×2 (10:36→22:57)
[2017-10-29] MEDS ORDERED: LIDOCAINE 5% TOPICAL PATCH TP SCH (11:15)
[2017-10-29 13:14] LABS: URINE APPEARANCE CLEAR; URINE BILIRUBIN NEGATIVE (NEGATIVE); URINE BLOOD NEGATIVE (NEGATIVE); URINE COLOR LTYELLOW; URINE GLUCOSE (UA) NEGATIVE (NEGATIVE); URINE KETONE NEGATIVE (NEGATIVE); URINE LEUK ESTERASE NEGATIVE (NEGATIVE); URINE NITRITE NEGATIVE (NEGATIVE); URINE PROTEIN NEGATIVE (NEGATIVE); URINE UROBILINOGEN NEGATIVE mg/dL (0.2-1.0)
--- NOTE | 2017-10-29 13:36 | PN ---
BHS Progress Note (SOAP) Subjective: Anxious, back pain (motrin not effective), interrupted sleep Objective: 10/29/17 13:27 Last Vital Signs Temp Pulse Resp BP Pulse Ox 97.3 F L 99 H 18 125/73 10/29/17 10:00 10/29/17 10:00 10/29/17 10:00 10/29/17 10:00 Laboratory Tests 10/26/17 10/27/17 10/27/17 21:00 06:00 06:00 WBC 5.9 RBC 4.02 Hgb 11.2 L Hct 35.7 MCV 88.8 MCH 27.8 MCHC 31.2 L RDW 17.7 H D Plt Count 200 MPV 9.6 Sodium 140 Potassium 3.7 Chloride 105 Carbon Dioxide 27 Anion Gap 8 BUN 24 H D Creatinine 1.2 D Creat Clearance w eGFR > 60 Random Glucose 139 H Calcium 9.0 Total Bilirubin 0.3 D AST 60 H D ALT 75 D Alkaline Phosphatase 96 D Total Protein 6.8 Albumin 3.1 L Urine Color Dkyellow Urine Appearance Slcloudy Urine pH 5.0 Ur Specific [place] 1.021 Urine Protein 2+ H Urine Glucose (UA) Negative Urine Ketones Negative Urine Blood Negative Urine Nitrite Negative Urine Bilirubin Negative Urine Urobilinogen Negative Ur Leukocyte Esterase Negative Urine WBC (Auto) 1 Urine RBC (Auto) 8 Ur Epithelial Cells Rare Hyaline Casts 21 Urine Mucus Rare RPR Titer 10/27/17 10/28/17 06:00 09:10 WBC RBC Hgb Hct MCV MCH MCHC RDW Plt Count MPV Sodium Potassium Chloride Carbon Dioxide Anion Gap BUN Creatinine Creat Clearance w eGFR Random Glucose Calcium Total Bilirubin AST ALT Alkaline Phosphatase Total Protein Albumin Urine Color Ltyellow Urine Appearance Clear Urine pH 6.0 Ur Specific [place] 1.010 Urine Protein Negative Urine Glucose (UA) Negative Urine Ketones Negative Urine Blood Negative Urine Nitrite Negative Urine Bilirubin Negative Urine Urobilinogen Negative Ur Leukocyte Esterase Urine WBC (Auto) Urine RBC (Auto) Ur Epithelial Cells Hyaline Casts Urine Mucus RPR Titer Nonreactive Labs noted Assessment: 10/29/17 13:27 Withdrawal symptoms Plan: Continue detox Encouraged to drink lots of water for hydration Lidocaine patch 5% daily, first dose today for back pain
[2017-10-29] MEDS: chlordiazePOXIDE HCL 10 MG CAPSULE PO SCH ×2 (17:46→22:55)
[2017-10-29] MEDS: guaiFENesin/D-METHORPHAN HB 10 ML UNIT-DOSE CUPS PO PRN (17:48)
[2017-10-29 19:30] LABS: URINE LEUK ESTERASE Negative (NEGATIVE)
[2017-10-29] MEDS ORDERED: LIDOCAINE PATCH REMOVAL MC SCH (22:00)
[2017-10-29] MEDS: THIAMINE HCL 100 MG TABLET (FP) PO SCH (22:54)
[2017-10-30] MEDS: chlordiazePOXIDE HCL 10 MG CAPSULE PO SCH (05:37)
[2017-10-30] MEDS: ACETAMINOPHEN 325 MG TABLET (FP) PO PRN (05:39)
--- NOTE | 2017-10-30 08:56 | DS ---
[facility] Detox Discharge Summary Admission Date: 10/26/17 Discharge Date: 10/30/17 - History Present History: Alcohol Dependence Pertinent Past History: Anemia, Asthma, HTN, GERD - Physical Exam Results Vital Signs: Vital Signs Temperature 96.8 F L 10/30/17 06:00 Pulse Rate 74 10/30/17 06:00 Respiratory Rate 18 10/30/17 06:00 Blood Pressure 122/66 10/30/17 06:00 O2 Sat by Pulse Oximetry (%) Pertinent Admission Physical Exam Findings: Laboratory Last Values WBC 5.9 K/mm3 (4.0-10.0) 10/27/17 06:00 RBC 4.02 M/mm3 (4.00-5.60) 10/27/17 06:00 Hgb 11.2 GM/dL (11.7-16.9) L 10/27/17 06:00 Hct 35.7 % (35.4-49) 10/27/17 06:00 MCV 88.8 fl (80-96) 10/27/17 06:00 MCH 27.8 pg (25.7-33.7) 10/27/17 06:00 MCHC 31.2 g/dl (32.0-35.9) L 10/27/17 06:00 RDW 17.7 % (11.9-15.9) H D 10/27/17 06:00 Plt Count 200 K/MM3 (134-434) 10/27/17 06:00 MPV 9.6 fl (7.5-11.1) 10/27/17 06:00 Sodium 140 mmol/L (136-145) 10/27/17 06:00 Potassium 3.7 mmol/L (3.5-5.1) 10/27/17 06:00 Chloride 105 mmol/L (98-107) 10/27/17 06:00 Carbon Dioxide 27 mmol/L (21-32) 10/27/17 06:00 Anion Gap 8 (8-16) 10/27/17 06:00 BUN 24 mg/dL (7-18) H D 10/27/17 06:00 Creatinine 1.2 mg/dL (0.7-1.3) D 10/27/17 06:00 Creat Clearance w eGFR > 60 (>60) 10/27/17 06:00 Random Glucose 139 mg/dL (74-106) H 10/27/17 06:00 Calcium 9.0 mg/dL (8.5-10.1) 10/27/17 06:00 Total Bilirubin 0.3 mg/dL (0.2-1.0) D 10/27/17 06:00 AST 60 U/L (15-37) H D 10/27/17 06:00 ALT 75 U/L (12-78) D 10/27/17 06:00 Alkaline Phosphatase 96 U/L (45-117) D 10/27/17 06:00 Total Protein 6.8 g/dl (6.4-8.2) 10/27/17 06:00 Albumin 3.1 g/dl (3.4-5.0) L 10/27/17 06:00 Urine Color Ltyellow 10/28/17 09:10 Urine Appearance Clear 10/28/17 09:10 Urine pH 6.0 (5.0-8.0) 10/28/17 09:10 Ur Specific [place] 1.010 (1.001-1.035) 10/28/17 09:10 Urine Protein Negative (NEGATIVE) 10/28/17 09:10 Urine Glucose (UA) Negative (NEGATIVE) 10/28/17 09:10 Urine Ketones Negative (NEGATIVE) 10/28/17 09:10 Urine Blood Negative (NEGATIVE) 10/28/17 09:10 Urine Nitrite Negative (NEGATIVE) 10/28/17 09:10 Urine Bilirubin Negative (NEGATIVE) 10/28/17 09:10 Urine Urobilinogen Negative mg/dL (0.2-1.0) 10/28/17 09:10 Ur Leukocyte Esterase Negative (NEGATIVE) 10/28/17 09:10 Urine WBC (Auto) 1 /hpf (3-5) 10/26/17 21:00 Urine RBC (Auto) 8 /hpf (0-3) 10/26/17 21:00 Ur Epithelial Cells Rare /HPF (FEW) 10/26/17 21:00 Hyaline Casts 21 /lpf 10/26/17 21:00 Urine Mucus Rare 10/26/17 21:00 RPR Titer Nonreactive (NONREACTIVE) 10/27/17 06:00 LAbs noted - Treatment Hospital Course: Detox Protocol Followed, Detoxed Safely, Responded well, Discharged Condition Good, Rehab Referral Accepted Patient has Accepted a Rehab Referral to: [facility] - Medication Discharge Medications: Ambulatory Orders Albuterol Sulfate Inhaler - [Ventolin HFA Inhaler -] 2 inh IH Q4H PRN #1 cartridge 01/07/16 Hydrochlorothiazide [Hctz -] 25 mg PO DAILY #30 tablet 01/07/16 Nifedipine [Nifedipine ER] 60 mg PO DAILY #30 tab.er.24 01/07/16 Pantoprazole Sodium [Protonix -] 40 mg PO DAILY #30 tablet.ec 01/07/16 Budesonide/Formeterol Fumarate [SYMBICORT 80/4.5mcg -] 1 puff IH BID 07/30/17 - Diagnosis (1) Alcohol dependence with withdrawal, uncomplicated Current Visit: Yes Status: Acute (2) Anemia Current Visit: Yes Status: Chronic Qualifiers: Anemia type: iron deficiency Iron deficiency anemia type: unspecified iron deficiency Qualified Code(s): D50.9 - Iron deficiency anemia, unspecified (3) Asthma Current Visit: Yes Status: Chronic (4) Gastroesophageal reflux disease Current Visit: Yes Status: Chronic Qualifiers: Esophagitis presence: esophagitis presence not specified Qualified Code(s) : K21.9 - Gastro-esophageal reflux disease without esophagitis (5) Essential hypertension Current Visit: No Status: Chronic - AMA Did Patient Leave Against Medical Advice: No
[2017-10-30 10:50] VITALS: BP 137/80; PULSE 82; TEMP 97.9
== END 2017-10-30 09:44 | disposition home or self-care (01) | DRG 897 ==
LOC: YASAS 12:21 → Y6N 17:34
PROVIDERS: ADMIT Internal Medicine; ATTEND Internal Medicine
PROC: HZ2ZZZZ Detoxification Services for Substance Abuse Treatment (ICD-10-PCS; principal; 2017-10-26)
DX: F10.230 Alcohol dependence with withdrawal, uncomplicated (principal); F17.213 Nicotine dependence, cigarettes, with withdrawal; I10 Essential (primary) hypertension; D50.9 Iron deficiency anemia, unspecified; J45.909 Unspecified asthma, uncomplicated; K21.9 Gastro-esophageal reflux disease without esophagitis; R79.89 Other specified abnormal findings of blood chemistry; R82.90 Unspecified abnormal findings in urine; Z87.898 Personal history of other specified conditions
CPT/HCPCS: 36415; 80053; 81003; 81015; 85027; 86593; 93005; 93010